=== PATIENT | female | born 1975 | race Caucasian/White ===

== ENCOUNTER → 2016-11-28 | Outpatient (CLI) | payer OTHER ==
[2014-04-13 18:24] VITALS: BP 130/80
[~2016-11-28] MED LIST: Hydrocodone/Acetaminophen PO; Ibuprofen PO
--- NOTE | 2016-11-28 09:48 | RAD ---
DATE: 11/28/2016 EXAM: DIGITAL SCREEN BILAT W/CAD HISTORY: Routine screening COMPARISON: Previous mammogram from 2016 and 2013 This study was interpreted with the benefit of Computerized Aided Detection (CAD). FINDINGS: Breast Density: SCATTERED The breast parenchyma shows scattered fibroglandular densities. Breast parenchyma level B. The skin and nipples are within normal limits. No suspicious calcifications, spiculated masses or areas of architectural distortion. IMPRESSION: No mammographic evidence of malignancy. Stable mammogram. BI-RADS CATEGORY: 1 NEGATIVE RECOMMENDED FOLLOW-UP: 12M 12 MONTH FOLLOW-UP PQRS compliance statement: Patient information was entered into a reminder system with a target due date 11/28/2017 for the next mammogram. Mammography is a sensitive method for finding small breast cancers, but it does not detect them all and is not a substitute for careful clinical examination. A negative mammogram does not negate a clinically suspicious finding and should not result in delay in biopsying a clinically suspicious abnormality. "Our facility is accredited by the [employer] Mammography [employer]."
== END | disposition home or self-care (01) ==
LOC: MAMMO 08:12
PROVIDERS: ATTEND Internal Medicine
DX: Z12.31 Encounter for screening mammogram for malignant neoplasm of breast (principal)
CPT/HCPCS: G0202; 77067

== ENCOUNTER → 2017-01-09 | Outpatient (CLI) | payer OTHER ==
[2014-04-13 18:24] VITALS: BP 130/80
--- NOTE | 2017-01-09 11:51 | RAD ---
Radionuclide gastric imaging study, 01/09/2017: History: Abdominal pain and bloating after eating The study was performed utilizing a solid test meal radiolabeled with 2 mCi of technetium 99m sulfur colloid. The time to half emptying of the test meal from the patient's stomach was estimated at 260 minutes. A normal T1T2 is 60 minutes +/- 30 minutes. IMPRESSION: Moderately delayed gastric emptying
== END | disposition home or self-care (01) ==
LOC: NM 06:49
PROVIDERS: ATTEND Internal Medicine Gastroenterology
DX: K30 Functional dyspepsia (principal)
CPT/HCPCS: 78264; A9541

== ENCOUNTER → 2017-03-29 | Outpatient (CLI) | payer OTHER | END | disposition home or self-care (01) | LOC: NM 07:37 | DX: K30 Functional dyspepsia (principal) | CPT/HCPCS: 78264; A9541 ==

== ENCOUNTER → 2017-09-17 | Outpatient (CLI) | payer OTHER ==
[~2017-09-17] MED LIST changes: +CONTRAST GIVEN. MC; -Hydrocodone/Acetaminophen PO; -Ibuprofen PO
[2017-09-17] MEDS: IOHEXOL 300 MG/ML 100ML VIAL. IV (09:58)
[2017-09-17] MEDS: IOHEXOL 240 MG/ML 50ML VIAL. PO (09:58)
== END | disposition home or self-care (01) ==
LOC: CT 08:47
DX: K76.0 Fatty (change of) liver, not elsewhere classified (principal); N28.1 Cyst of kidney, acquired; M41.86 Other forms of scoliosis, lumbar region; M43.26 Fusion of spine, lumbar region
CPT/HCPCS: 74177; Q9966; Q9967

== ENCOUNTER → 2017-12-11 | Outpatient (CLI) | payer OTHER ==
[2014-04-13 18:24] VITALS: BP 130/80
[~2017-12-11] MED LIST changes: -CONTRAST GIVEN. MC; +HYDR-2758 PO; +Hydrocodone/Acetaminophen PO; +IBUP-1060 PO; +Ibuprofen PO
--- NOTE | 2017-12-11 11:51 | RAD ---
DATE: December 11, 2017 EXAM: MAMMO NAHED SCREENING BILATERAL HISTORY: Screening study. COMPARISON: 2012 and 2015 and 2016 This study was interpreted with the benefit of Computerized Aided Detection (CAD). 2-D digital mammographic views of both breasts were performed in the CC and MLO projections. 3-D digital tomosynthesis images of both breasts were performed in the CC and MLO projections and reviewed on a computer workstation. FINDINGS: Breast Density: SCATTERED The breast parenchyma shows scattered fibroglandular densities. Breast parenchyma level B.. There are no dominant suspicious masses, suspicious microcalcifications or evidence of architectural distortion. IMPRESSION: No mammographic indicators for malignancy. BI-RADS CATEGORY: 1 NEGATIVE RECOMMENDED FOLLOW-UP: 12M 12 MONTH FOLLOW-UP PQRS compliance statement: Patient information was entered into a reminder system with a target due date December 12, 2018 for the next mammogram. Mammography is a sensitive method for finding small breast cancers, but it does not detect them all and is not a substitute for careful clinical examination. A negative mammogram does not negate a clinically suspicious finding and should not result in delay in biopsying a clinically suspicious abnormality. "Our facility is accredited by the [employer] Mammography [employer]." The patient's breast density may affect the ability of mammography to detect breast cancer. There are 4 categories of breast density, A, B, C and D. Breast density A means that most of the breast tissue is replaced with adipose tissue and therefore is not dense. Breast density B means that the breast tissue is mildly dense and scattered. Breast density C means that the breast tissue is heterogeneously dense. Breast density D means that the breast tissue is very dense. Breast densities especially C and D may decrease the sensitivity of mammography to detect breast cancer. Therefore, the patient may benefit from 3-D breast mammography (3D breast tomography) as a part of their screening mammogram. Insurance may or may not pay for this additional imaging. The patient's breast density based on today's mammogram is category B.
== END | disposition home or self-care (01) ==
LOC: MAMMO 07:48
PROVIDERS: ATTEND Internal Medicine
DX: Z12.31 Encounter for screening mammogram for malignant neoplasm of breast (principal)
CPT/HCPCS: 77063; 77067

== ENCOUNTER 2018-09-18 07:49 | Observation (INO) | payer OTHER ==
[~2018-09-18] VITALS: Ht 167.6 cm; Wt 87.1 kg
[~2018-09-18 07:49] MED LIST changes: +ATOR20TA58 PO; +BUPIVACAINE-EPI 0.25%-1:200000 MPF 30 ML VIAL. ONE; +DEXL60CA2 PO; -HYDR-2758 PO; +HYDR-2761 PO; +HYDROmorphone 2 MG/ML VIAL IV PRN; +IV RINGERS,LACTATED 1000ML 1,000 ML IV SCH; +LEVO25TA4 PO; +METO10TA81 PO; +MORPHINE SULFATE 2 MG/ML VIAL. IV PRN; +ONDANSETRON PF 4 MG/2 ML VIAL. IV PRN; +PROCHLORPERAZINE 10 MG/2 ML VIAL. IV PRN; +fentaNYL PF VIAL 100 MCG/2 ML VIAL IV PRN
[2018-09-18] MEDS ORDERED: LIDOCAINE 1%/EPI 1:100,000 20 ML VIAL. ONE (08:05)
[2018-09-18] MEDS ORDERED: PROPOFOL 20 ML IV ONE (08:22)
[2018-09-18] MEDS ORDERED: fentaNYL PF VIAL 100 MCG/2 ML VIAL ONE (08:22)
[2018-09-18] MEDS ORDERED: LIDOCAINE 2% PF 5 ML VIAL. ONE (08:22)
[2018-09-18 08:36] LABS: BASO % 1 % (0-3); EOS # 0.1 x10^3/uL (0.0-0.7); EOS % 2 % (0-3); HEMATOCRIT 39.5 % (36.0-47.0); HEMOGLOBIN 13.4 g/dL (12.0-15.5); LYMPH # 1.4 x10^3/uL (1.0-4.8); LYMPH % 20 % (24-48); MEAN CORPUSCULAR HEMOGLOBIN 31 pg (25-35); MEAN CORPUSCULAR HGB CONC 34 g/dL (31-37); MEAN CORPUSCULAR VOLUME 90 fL (79-100); MONO # 0.4 x10^3/uL (0.0-1.1); MONO % 6 % (0-9); NEUT # 4.9 x10^3/uL (1.8-7.7); NEUT % 71 % (31-73); PLATELET COUNT 244 x10^3/uL (140-400); RED CELL DISTRIBUTION WIDTH 13.6 % (11.5-14.5); WHITE BLOOD COUNT 6.8 x10^3/uL (4.0-11.0)
[2018-09-18] MEDS ORDERED: ceFAZolin 2GM PREMIX 2 GM/50 ML BAG IV ONE (09:00)
[2018-09-18] MEDS ORDERED: DEXAMETHASONE SOD PHOS 4 MG/ML VIAL ONE (09:25)
[2018-09-18] MEDS ORDERED: SEVOFLURANE 31 TO 60 MINUTES. IH ONE (09:25)
[2018-09-18] MEDS ORDERED: ONDANSETRON PF 4 MG/2 ML VIAL. ONE (09:25)
--- NOTE | 2018-09-18 09:58 | PDOC ---
BRIEF OPERATIVE NOTE Date: Sep 18, 2018 Pre-Op Diagnosis TERESA Post-Op Diagnosis Same Procedure Performed BLadder Sling Surgeon Dr. Lovett Anesthesia Type: General Blood Loss 20 ml Specimens Obtained none Findings TERESA Complications none Operative Note see dictation SRAVANI LOVETT Jr, MD Sep 18, 2018 09:58
[2018-09-18] MEDS ORDERED: SIMETHICONE 80 MG TAB.CHEW PO PRN (10:00)
[2018-09-18] MEDS ORDERED: diphenhydrAMINE HCL 25 MG CAPSULE PO PRN (10:00)
[2018-09-18] MEDS ORDERED: CALCIUM CARBONATE 500 MG TAB.CHEW PO PRN (10:00)
[2018-09-18] MEDS ORDERED: 0.9 % SODIUM CHLORIDE 10 ML DISP.SYRIN. IV PRN (10:00)
[2018-09-18] MEDS ORDERED: DEXTROSE 50% 25 GM / 50ML DISP.SYRIN. IV PRN (10:00)
[2018-09-18] MEDS ORDERED: diphenhydrAMINE 50 MG/ML VIAL IV PRN (10:00)
[2018-09-18] MEDS ORDERED: ONDANSETRON PF 4 MG/2 ML VIAL. IV PRN (10:00)
[2018-09-18] MEDS ORDERED: oxyCODONE/APAP 5/325 1 TAB TABLET PO PRN (10:00)
[2018-09-18] MEDS ORDERED: KETOROLAC 30 MG/ML VIAL. IV PRN (10:00)
[2018-09-18] MEDS ORDERED: ZOLPIDEM 5 MG TABLET. PO PRN (10:00)
[2018-09-18] MEDS ORDERED: PROCHLORPERAZINE 10 MG/2 ML VIAL. IV PRN (10:00)
--- NOTE | 2018-09-18 10:03 | DISCH ---
DISCHARGE INSTRUCTIONS Condition on Discharge Condition on Discharge: Stable Activity After Discharge Activity Instructions for Disc: Activity as tolerated Bathing Instructions: No Tub Bath until see Lifting Instructions after Dis: No heavy lifting, No pulling or pushing, Do not lift >10 pounds Driving Instructions after Dis: Do not drive today Weight Bearing Status after Di: No restrictions Diet after Discharge Diet after Discharge: Regular Diet Texture: Regular Contacting the [facility] after DC Call your doctor for: Concerns you may have Follow-Up Follow up with: Dr. Major in 2 weeks SRAVANI MAJOR Jr, MD Sep 18, 2018 10:03
[2018-09-18 10:58] VITALS: BP 116/75
--- NOTE | 2018-09-18 12:52 | OP ---
DATE OF SURGERY: 09/18/2018 PREOPERATIVE DIAGNOSIS: Stress urinary incontinence. POSTOPERATIVE DIAGNOSIS: Stress urinary incontinence. PROCEDURE: Suburethral bladder sling. SURGEON: Lance Bobby MD ANESTHESIA: GETA. ESTIMATED BLOOD LOSS: 20 mL. COMPLICATIONS: None. FINDINGS: Stress urinary incontinence. COMPLICATIONS: None. SUMMARY: A 42-year-old female with stress urinary incontinence, requiring suburethral bladder sling placement. She was counseled on the risks, benefits, and expectations, as well as for mesh erosion and voiced clear understanding to proceed. DESCRIPTION OF PROCEDURE: The patient was taken to surgery suite and placed in dorsal lithotomy position. She was prepped with Betadine solution and draped in a sterile fashion. After adequate anesthesia, weighted speculum was placed. An Allis clamp was placed 1 cm below the urethral orifice. A second Allis clamp was placed 3 cm below the first Allis clamp on the anterior vaginal wall mucosa. A 1% lidocaine with epinephrine was injected between the 2 Allis clamps as well as in the periurethral space and in the groin region for the entry points of the trocars, which was at the level of the clitoris and where the abductus longus attached to the pubic ramus bilaterally. An incision was made between two Allis clamps in a vertical fashion, as well as in the insertion points in the groin region. The anterior vaginal wall mucosa and periurethral space was dissected using sharp dissection with Metzenbaum scissors all the way to the obturator foramen bilaterally along with blunt dissection. The right trocar was then passed through the groin incision through the obturator foramen and guided with my index finger out through the opening. The mesh was attached. The trocar was then removed from the opposite fascia. Same procedure took place with the left trocar. Cystoscopy was performed, in which the bladder was intact with no injuries. The urethrovesical junctions were visualized and functioning normally. The cystoscope was then removed. The mesh was then adjusted to a loose fit using a size #7 Hegar dilator. The exposed mesh was excised at the level of the groin. The groin incisions were reapproximated using Dermabond. The anterior vaginal wall mucosa was reapproximated using 2-0 Vicryl suture in a [id number] manner. Mariano catheter was placed. The patient tolerated the procedure well and was taken to recovery room in stable condition. Sponge and needle count correct x 3. LANCE BOBBY MD DR: MARIXA/michelle JOB#: [id number] / [id number]
[2018-09-18] MEDS ORDERED: GABAPENTIN 300 MG CAPSULE. PO SCH (14:00)
[2018-09-18 14:26] VITALS: BP 121/68
== END 2018-09-18 14:35 | disposition home or self-care (01) ==
LOC: SURG 07:49 → 3 NORTH 10:13
PROVIDERS: ADMIT Obstetrics & Gynecology; ATTEND Obstetrics & Gynecology
DX: N39.3 Stress incontinence (female) (male) (principal)
CPT/HCPCS: 36415; 57288; 85025; 86850; 86900; 86901; A7015; G0378; G0379; J0696; J1100; J2001; J2405; J2704; J3010; J3490; J7030; C1771

== ENCOUNTER → 2018-12-18 | Outpatient (CLI) | payer OTHER ==
[~2018-12-18] MED LIST changes: -BUPIVACAINE-EPI 0.25%-1:200000 MPF 30 ML VIAL. ONE; -HYDROmorphone 2 MG/ML VIAL IV PRN; -IV RINGERS,LACTATED 1000ML 1,000 ML IV SCH; -MORPHINE SULFATE 2 MG/ML VIAL. IV PRN; -ONDANSETRON PF 4 MG/2 ML VIAL. IV PRN; -PROCHLORPERAZINE 10 MG/2 ML VIAL. IV PRN; -fentaNYL PF VIAL 100 MCG/2 ML VIAL IV PRN
--- NOTE | 2018-12-19 16:14 | RAD ---
DATE: 12/18/2018. EXAM: DIGITAL SCREEN BILAT W/CAD. HISTORY: Routine mammographic screening. COMPARISON: 12/11/2017. This study was interpreted with the benefit of Computerized Aided Detection (CAD). FINDINGS: Breast Density: SCATTERED The breast parenchyma shows scattered fibroglandular densities. Breast parenchyma level B.. There are no suspicious masses, microcalcifications or architectural distortion. The parenchymal pattern is stable. BI-RADS CATEGORY: 1 NEGATIVE. RECOMMENDED FOLLOW-UP: 12M 12 MONTH FOLLOW-UP. PQRS compliance statement: Patient information was entered into a reminder system with a target due date 12/19/2019 for the next mammogram. Mammography is a sensitive method for finding small breast cancers, but it does not detect them all and is not a substitute for careful clinical examination. A negative mammogram does not negate a clinically suspicious finding and should not result in delay in biopsying a clinically suspicious abnormality. "Our facility is accredited by the [employer] Mammography Program."
== END | disposition home or self-care (01) ==
LOC: MAMMO 12:33
PROVIDERS: ATTEND Internal Medicine
DX: Z12.31 Encounter for screening mammogram for malignant neoplasm of breast (principal)
CPT/HCPCS: 77067

== ENCOUNTER → 2018-12-19 | Outpatient (CLI) | payer OTHER ==
--- NOTE | 2018-12-19 15:32 | RAD ---
EXAM: Lumbar spine, 3 views; thoracic spine, 3 views. HISTORY: Scoliosis. Right-sided radiculopathy. COMPARISON: None. FINDINGS: 3 views of the thoracic and lumbar spine are obtained. There is moderate to severe rotatory S-shaped thoracolumbar scoliosis with approximately 17 degrees levocurvature centered at T11 and 45 degrees dextrocurvature centered at L3. There is severe degenerative endplate remodeling with disc space narrowing and osteophytosis along the left aspects of L2-L3 and L3-L4. There is also chronic wedging of the left aspect of L3, consistent with the site of maximum scoliotic concavity. There is slight lateral translation of L3 on L4. No segmentation anomaly is seen. There is mild retrolisthesis of L3 on L4 and L4 and L5. There is kyphosis centered at L3. IMPRESSION: 1. Moderate to severe S-shaped rotatory scoliosis of the thoracolumbar spine. 2. Degenerative change primarily at the mid lumbar levels and chronic wedging of the left aspect of L3, corresponding with the level of maximum scoliotic concavity. 3. No acute osseous finding. Electronically signed by: Merissa Baker MD (12/19/2018 3:30 PM) [place] [id number]
== END | disposition home or self-care (01) ==
LOC: RAD 12:52
PROVIDERS: ATTEND Internal Medicine
DX: M41.85 Other forms of scoliosis, thoracolumbar region (principal); M47.816 Spondylosis without myelopathy or radiculopathy, lumbar region
CPT/HCPCS: 72072; 72100

== ENCOUNTER → 2019-01-16 | Outpatient (CLI) | payer OTHER ==
--- NOTE | 2019-01-16 14:40 | KCIC ---
EXAMINATION: Magnetic resonance imaging (MRI) of the lumbar spine without contrast 01/16/2019 1:15 PM HISTORY: Chronic low back pain. Chronic pain from the neck down into the lower back TECHNIQUE: Multiplanar multi-weighted MRI of the lumbar spine was performed without intravenous contrast using the standard lumbar spine protocol. Contrast information: None administered. COMPARISON: None available. FINDINGS: There is dextro convex scoliosis of the lumbar spine with apex dextrocurvature at L3-L4. 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 There is advanced disc height loss asymmetric to the left at L3-L4 and moderate disc height loss asymmetric to the left at L2-L3. Vertebral body heights are maintained. Marrow signal intensity is within normal limits. There is disc desiccation at L2-L3, L3-L4 and L4-L5. Conus medullaris terminates at T12-L1. Distal spinal cord signal intensity is normal in all sequences. Abdominal aorta is normal in course and caliber. No suspicious retroperitoneal abnormality is identified. T12-L1 Mild disc bulge asymmetric to the right. There is mild facet arthropathy. Mild right neuroforaminal stenosis. No spinal canal stenosis. L1-L2: There is a mild disc bulge asymmetric to the right. Mild right facet arthropathy. No neuroforaminal or spinal canal stenosis. L2-L3: There is partial fusion of the right L2 hemivertebra with superior endplate of L3. There may be osseous fusion of the right-sided facet joints at this level. L3-L4: There is a disc bulge asymmetric to the right. There is moderate facet arthropathy. No definite neuroforaminal stenosis. Mild spinal canal stenosis. L4-L5: There is mild disc bulge. There is moderate facet arthropathy. Moderate right and mild left neuroforaminal stenosis. There is narrowing the right lateral recess. L5-S1: Disc is normal in configuration. No significant facet arthropathy. No neuroforaminal or spinal canal stenosis. 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 This may be confirmed with CT lumbar spine for better osseous visualization. Mild/moderate associated degenerative disc disease is noted. Electronically signed by: Cleopatra García MD (01/16/2019 2:37 PM) [id number]
== END | disposition home or self-care (01) ==
LOC: KCIC MRI 12:45
PROVIDERS: ATTEND Physical Medicine & Rehabilitation
DX: M51.36 Other intervertebral disc degeneration, lumbar region (principal); M51.26 Other intervertebral disc displacement, lumbar region; M48.061 Spinal stenosis, lumbar region without neurogenic claudication; M41.86 Other forms of scoliosis, lumbar region; M46.85 Other specified inflammatory spondylopathies, thoracolumbar region; G89.29 Other chronic pain
CPT/HCPCS: 72148

== ENCOUNTER → 2020-07-05 | Outpatient (CLI) | payer BC ==
--- NOTE | 2020-07-05 10:59 | KCIC ---
STUDY: MRI of the right knee without contrast INDICATION: Osteoarthritis of the right knee. Chronic pain. COMPARISON: Right knee radiographs 05/31/2020 TECHNIQUE: Multiplanar MR imaging of the right knee performed without the use of intravenous or intra -articular contrast. FINDINGS: Menisci: The medial meniscus is mildly diminutive but without a discrete tear or displaced meniscal t issue. Horizontal tear of the anterior horn of the lateral meniscus with an associated parameniscal c yst measuring 6 x 4.5 x 3 mm, image 19 series 6. Cruciate ligaments: Intact ACL and PCL. Collateral ligaments: Intact medial and lateral collateral ligaments. Intact IT band and retinacula. Tendons: Intact. Cartilage: Patellofemoral: Large area of full-thickness chondrosis across the lateral patellar facet and lateral trochlea. Less pronounced but still high-grade chondrosis at the medial patellar facet and involving portions of the trochlea. Lateral compartment: Chondrosis at the inner margin of the weightbearing tibial plateau with subchond ral cystic change. There is also chondrosis at the posterior lip of the lateral tibial plateau. Parti al thickness chondrosis at the far posterior nonweightbearing lateral femoral condyle. Medial compartment: Partial thickness chondrosis at the periphery of the weightbearing medial tibial plateau and femoral condyle. High-grade chondrosis at the far posterior nonweightbearing medial femor al condyle. Bones: Scattered subchondral edema and cystic change by far greatest at the patellofemoral compartmen t. Tricompartmental osteophyte formation. Degenerative changes at the proximal tibiofibular joint. Re modeling of the patellofemoral compartment articular surfaces. Heterogeneous marrow signal within the distal femoral shaft sparing the epiphysis is most likely physiologic given patient age and gender. Miscellaneous: Small knee joint effusion with mild synovitis no significant Conway's cyst. No large ga nglion. IMPRESSION: 1. Horizontal tear of the lateral meniscus anterior horn with an associated parameniscal cyst measur ing 6 x 4.5 x 3 mm. Slightly diminutive but intact medial meniscus. Intact cruciate and collateral li gaments. 2. 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 3. Small knee joint effusion with mild synovitis. Electronically signed by: NGA CROCKER MD (07/05/2020 10:57 AM) [id number]
== END ==
LOC: KCIC MRI 08:50
PROVIDERS: ATTEND Physician Assistant
DX: S83.281A Other tear of lateral meniscus, current injury, right knee, initial encounter (principal); M25.461 Effusion, right knee; M65.88 Other synovitis and tenosynovitis, other site; M23.006 Cystic meniscus, unspecified meniscus, right knee; M17.11 Unilateral primary osteoarthritis, right knee; X58.XXXA Exposure to other specified factors, initial encounter; Y93.89 Activity, other specified; Y92.89 Other specified places as the place of occurrence of the external cause; Y99.8 Other external cause status
CPT/HCPCS: 73721